=== PATIENT | male | born 1955 | race Hispanic/Latino ===

== ENCOUNTER 2017-05-25 10:25 | Outpatient (CLI) | payer BC ==
[2017-05-25 16:32] LABS: #Eosinphils 0.2 thou/uL (0.0-0.7); #Lymphocytes 1.7 thou/uL (1.20-3.40); #Monocytes 0.5 thou/uL (0.11-0.59); #Neutrophils 3.6 thou/uL (1.40-6.50); %Basophils 0.7 % (0.0-1.0); %Lymphocytes 27.8 % (21.0-51.0); %Monocytes 8.5 % (0.0-10.0); Hematocrit 40.4 % (42.0-52.0); Red Blood Cell (RBC) Count 3.96 mill/uL (4.70-6.10)
== END 2017-05-25 10:26 | disposition home or self-care (01) ==
LOC: CANPRECLI → LABBT 10:25
PROVIDERS: ATTEND Orthopaedic Surgery Hand Surgery
DX: Z01.812 Encounter for preprocedural laboratory examination (principal); M65.342 Trigger finger, left ring finger; M65.332 Trigger finger, left middle finger
CPT/HCPCS: 85025

== ENCOUNTER 2017-10-10 14:40 | Outpatient (CLI) | payer BC ==
--- NOTE | 2017-10-10 15:57 | MRI ---
MRI RIGHT SHOULDER WITHOUT CONTRAST: HISTORY: M25.511. COMPARISON: MRI 2013. FINDINGS: BICEPS TENDON: No normal intraarticular biceps tendon is seen. There is likely tenodesis. GLENOID LABRUM: There is tearing throughout the superior labrum. There is extensive abnormal signal throughout the s uperior labrum. There is thickening anterior and posterior labrum and inferior labrum with chronic d egeneration. There is also a tear of the posterior labrum at 9:00. ROTATOR CUFF: Full-thickness full-width subscapularis tear with retraction to the glenohumeral joint. There was al so a full-thickness full-width supraspinatus tendon tear retracted to the medial 1/3 humeral head. S evere tendinosis of the supraspinatus tendon. There is also extensive interstitial tearing of the in fraspinatus tendon with fluid extending along the myotendinous junction. BONES: There is some lateral downsloping of the acromion. There is a type III acromion and subacromial spur . Large anterior and inferior subchondral cyst formation of the glenoid. MUSCLES: Greater than 50% atrophy of the subscapularis. There is also edema along the supraspinatus muscle wi thout significant atrophy. Myotendinous junction edema of the infraspinatus is present. There is mi ld fatty atrophy of the teres minor. IMPRESSION: 1. Chronic full-thickness full-width subscapularis tendon tear with tendon retraction of the glenohu meral joint and greater than 50% muscle atrophy. 2. Full-thickness full width supraspinatus tendon tear with tendons retracted to the medial 1/3 antoinette ral head. The torn fibers were markedly tendinotic, although have a wavy appearance and, therefore, may not be scarred down. 3. Extensive synovitis. 4. Moderate interstitial tearing of the infraspinatus tendon with edema tracking along the myotendin ous junction. 5. Type III acromion of subacromial spur narrowing the subacromial space. 6. Likely prior tenodesis. 7. Extensive tearing and degeneration of the labrum. 8. Large anterior inferior subchondral cyst of the glenoid. POS: [facility]
== END 2017-10-10 14:41 | disposition home or self-care (01) ==
LOC: SCSMRI 14:40
PROVIDERS: ATTEND Orthopaedic Surgery
DX: M25.511 Pain in right shoulder (principal); M75.101 Unspecified rotator cuff tear or rupture of right shoulder, not specified as traumatic; R60.0 Localized edema; M65.811 Other synovitis and tenosynovitis, right shoulder; M75.91 Shoulder lesion, unspecified, right shoulder

== ENCOUNTER 2017-10-27 09:48 | Outpatient (CLI) | payer BC ==
[2017-10-27 11:43] LABS: Hemoglobin 14.7 g/dL (14.0-18.0); Mean Corpuscular HGB CONC 34.4 g/dL (32.0-36.0); Mean Corpuscular Hemoglobin 34.2 pg (27.0-31.0); Mean Corpuscular Volume 99.3 fl (80.0-94.0); Mean Platelet Volume 6.4 fL (7.4-10.4); Platelet Count 255 thou/uL (130-400); RBC Distribution Width 11.5 % (11.5-14.5); Red Blood Cell (RBC) Count 4.29 mill/uL (4.70-6.10); White Blood Cell (WBC) Count 5.6 thou/uL (4.8-10.8)
[2017-10-27 11:59] LABS: Anion Gap 13 mmol/L (10-20); BUN (Urea Nitrogen) 13 mg/dL (8.4-25.7); Calc. Creatinine Clearance 0 mL/min (70-130); Calcium 9.3 mg/dL (7.8-10.44); Carbon Dioxide 24 mmol/L (22-29); Chloride 98 mmol/L (98-107); Estimated GFR-MDRD Greater than 90; Glucose 112 mg/dL (70-105); Potassium 4.2 mmol/L (3.5-5.1); Sodium 131 mmol/L (136-145)
--- NOTE | 2017-10-27 12:45 | RAD ---
TWO VIEWS OF THE CHEST: Date: 10-27-17 Comparison: 04-27-16 History: Pre-operative patient. FINDINGS: There is no pneumothorax, pleural fluid, focal consolidation or alveolar edema. Heart and mediastinal contours demonstrate stable prominence of the cardiac silhouette. There is multilevel lower thoracic spine and upper lumbar spine disc space narrowing and mild anterior osteophyte formation. No acute f indings. IMPRESSION: Stable two view examination of the chest - no acute findings. POS: [facility]
--- NOTE | 2017-11-09 22:48 | EKG ---
Test Reason : Blood Pressure : / mmHG Vent. Rate : 071 BPM Atrial Rate : 071 BPM P-R Int : 140 ms QRS Dur : 088 ms QT Int : 378 ms P-R-T Axes : 008 -18 013 degrees QTc Int : 410 ms Normal sinus rhythm Normal ECG When compared with ECG of 25-MAY-2017 15:32, No significant change was found Confirmed by Dhara GARZON ([id number]) on 11/09/2017 10:48:23 PM Referred By: ARON Confirmed By:Dhara GARZON
== END 2017-10-27 09:49 | disposition home or self-care (01) ==
LOC: LABBT 09:48
PROVIDERS: ATTEND Orthopaedic Surgery
DX: Z01.818 Encounter for other preprocedural examination (principal); M75.101 Unspecified rotator cuff tear or rupture of right shoulder, not specified as traumatic
CPT/HCPCS: 71046; 80048; 85027; 93005; 93010

== ENCOUNTER 2017-11-04 05:54 | Day surgery (SDC) | payer BC ==
[2017-10-27 10:11] VITALS: BMI 32.3
[2017-11-04] MEDS ORDERED: CEFAZOLIN/Water 2 GM/20 ML SYRINGE ONE (06:22)
[2017-11-04] MEDS ORDERED: Midazolam HCl 2 mg/2 ml Vial ONE (06:25)
[2017-11-04] MEDS ORDERED: Ropivacaine 0.2% HCl/PF 20 ML ONE (06:25)
[2017-11-04] MEDS ORDERED: Fentanyl 100 MCG/2 ML VIAL ONE ×3 (06:25→09:00)
[2017-11-04] MEDS ORDERED: Lidocaine 1% (PF) 30 ML VIAL ONE (06:25)
[2017-11-04] MEDS ORDERED: Zolpidem Tartrate 5 MG TAB PO PRN (07:03)
[2017-11-04] MEDS ORDERED: HYDROcodone/Acetaminophen 10/325 mg Tablet PO PRN ×2 (07:03)
[2017-11-04] MEDS ORDERED: Ropivacaine 0.2% 550 ML 550 ML NERVE BLCK SCH (07:03)
[2017-11-04] MEDS ORDERED: traMADol HCl 50 MG TAB PO PRN ×2 (07:03)
[2017-11-04] MEDS ORDERED: Promethazine HCl 25 MG/ML VIAL IM PRN (07:03)
[2017-11-04] MEDS ORDERED: Ondansetron HCl/PF 4 MG/2 ML Vial IVP PRN ×2 (07:03→09:18)
[2017-11-04] MEDS ORDERED: Ketorolac Tromethamine 30 MG/ML VIAL IVP PRN (07:03)
[2017-11-04] MEDS ORDERED: Non-Formulary Medication 1 EACH PO PRN (09:17)
[2017-11-04] MEDS ORDERED: Promethazine HCl 25 MG/ML VIAL IM/IV PRN (09:18)
[2017-11-04] MEDS ORDERED: HYDROcodone/Acetaminophen 5/325 mg Tablet ONE (09:41)
--- NOTE | 2017-11-04 10:19 | OP ---
PREOPERATIVE DIAGNOSIS: Massive rotator cuff tear, right. POSTOPERATIVE DIAGNOSIS: Massive rotator cuff tear, right. PROCEDURE PERFORMED: Open acromioplasty and rotator cuff repair. SURGEON: Edu Cannon M.D. ULTRASOUND SONOGRAPHER: Dr. Self. BLOOD LOSS: 100. SPECIMEN: None. DRAINS: None. COMPLICATIONS: None. DESCRIPTION OF PROCEDURE: The patient was placed in the beach chair position. A deltoid splitting a pproach was made. I performed an anterior and inferior acromioplasty. Achieved hemostasis. Removed bursal tissue and exposed the humeral head, which was completely uncovered. I was able to mobilize the rotator cuff and advanced it laterally freshened up the rotator cuff. I freshened up the bone to bleeding bone at the edge of the articular margin. I placed two Arthrex corkscrew suture anchors th rough the base of this bloody area and then attached the tendon down to the bleeding bone and then re inforced this with double row type repair. Irrigation performed. Deltoid was repaired back to bone using #1 Ethibond. Subcutaneous tissue was closed with 2-0 Vicryl, the skin was closed with ari.
== END 2017-11-04 10:15 | disposition home or self-care (01) ==
LOC: SDC 05:54
PROVIDERS: ATTEND Orthopaedic Surgery
PROC: 0LQ10ZZ Repair Right Shoulder Tendon, Open Approach (ICD-10-PCS; principal; 2017-11-04)
DX: M75.101 Unspecified rotator cuff tear or rupture of right shoulder, not specified as traumatic (principal); Z98.890 Other specified postprocedural states
CPT/HCPCS: 96374; A4306; C1713; J2001; J2250; J2795; J3010

== ENCOUNTER 2020-05-19 20:19 | Inpatient (IN) | payer BC, OTHER, SELFPAY ==
[~2020-05-19 20:19] MED LIST: Iopamidol 370 76% 100 ML VIAL ONE
[2020-05-19 22:00] LABS: #Eosinphils 0.1 thou/uL (0.0-0.7); #Lymphocytes 1.2 thou/uL (1.20-3.40); #Monocytes 0.9 thou/uL (0.11-0.59); #Neutrophils 7.6 thou/uL (1.40-6.50); %Basophils 0.3 % (0.0-1.0); %Eosinophils 0.6 % (0.0-10.0); %Lymphocytes 11.8 % (21.0-51.0); %Monocytes 9.6 % (0.0-10.0); %Neutrophils 77.8 % (42.0-75.0); Hemoglobin 14.3 g/dL (14.0-18.0); Mean Corpuscular HGB CONC 34.1 g/dL (32.0-36.0); Mean Corpuscular Hemoglobin 33.9 pg (27.0-31.0); Mean Corpuscular Volume 99.4 fL (78.0-98.0); Platelet Count 211 thou/uL (130-400); RBC Distribution Width 11.7 % (11.5-14.5); Red Blood Cell (RBC) Count 4.23 mill/uL (4.70-6.10); White Blood Cell (WBC) Count 9.7 thou/uL (4.8-10.8)
[2020-05-19 22:22] LABS: ALT (SGPT) 72 U/L (8-55); AST (SGOT) 26 U/L (5-34); Albumin 4.2 g/dL (3.4-4.8); Alkaline Phosphatase 99 U/L (40-110); Anion Gap 13 mmol/L (10-20); BUN (Urea Nitrogen) 7 mg/dL (8.4-25.7); Bilirubin, Total 1.3 mg/dL (0.2-1.2); Calc. Creatinine Clearance 0 mL/min (70-130); Carbon Dioxide 28 mmol/L (23-31); Chloride 93 mmol/L (98-107); Estimated GFR-MDRD Greater than 90; Globulin 3.5 g/dL (2.4-3.5); Glucose 113 mg/dL (80-115); Potassium 3.9 mmol/L (3.5-5.1); Protein, Total 7.7 g/dL (5.8-8.1); Sodium 130 mmol/L (136-145)
[2020-05-19] MEDS ORDERED: Morphine 4 MG/ML VIAL ONE (23:08)
[2020-05-19] MEDS ORDERED: Ketorolac Tromethamine 30 MG/ML VIAL ONE (23:08)
--- NOTE | 2020-05-19 23:18 | CT ---
CT OF THE SOFT TISSUES OF THE NECK WITH IV CONTRAST INDICATION: Right-sided facial soft tissue swelling COMPARISON: None FINDINGS: Aerodigestive tract: Clear. Parotids/Submandibular/Thyroid glands: Normal. Lymph nodes: No pathologically enlarged lymph nodes. Lung Apices: There is a calcified granuloma in the right upper lobe. Bones: There is scattered degenerative and osteoarthritic change present. Incidentals: There is soft tissue reticulation and edema involving the right aspect of the jaw, over lying the right mandible. There is thickening of the right aspect of the platysma with inflammatory reticulation of the subcutaneous fat of the right aspect of the neck. No drainable fluid collection i s evident. There is periapical lucency surrounding a right posterior mandibular molar with cortical breakthrough suspicious for periapical abscess. IMPRESSION: Right posterior mandibular molar periodontal abscess with associated right-sided facial cellulitis. N o overt drainable fluid collection is seen within the soft tissues of the neck.
[2020-05-19 23:38] LABS: Bilirubin Negative (Negative); Blood, Urine Negative (Negative); Clarity Clear (Clear); Glucose, Urine (Dipstick) Normal (Negative); Ketone, Urine Trace mg/dL (Negative); Leukocyte Negative Leu/uL (Negative); Nitrite Negative (Negative); Protein, Urine (Dipstick) Negative (Neg-Trace); Specific Gravity, Urine 1.019 (1.002-1.036); Urobilinogen Normal mg/dL (Less than 2)
[2020-05-19] MEDS ORDERED: Ampicillin/Sulbactam 3 GM in Sodium Chloride 0.9% 100 ML IVPB SCH (23:45)
[2020-05-19] MEDS ORDERED: Vancomycin 1 GM/200 ML BAG ONE (23:51)
--- NOTE | 2020-05-20 00:55 | PDOC.HHP ---
Hospitalist HPI - History of Present Illness Right sided dental pain and swelling History of Present Illness: 64-year-old gentleman with history of hypertension presented to the emergency department with a complaint of right-sided dental pain and swelling which has been present for about 2 days. Patient saw his dentist this morning prescribed him penicillin and Tylenol 3. Patient states that the pain and swelling rapidly progressed over the course of the day and therefore presented to the emergency department. CT soft tissue of the neck done in the ED reported right posterior mandibular molar periodontal abscess with associated right-sided facial cellulitis, no overt drainable fluid collection was seen. According to the ED physician, he lanced the periodontal abscess, with a small amount of pus followed by serosanguineous fluid coming out. He was complaining of difficulty swallowing which got better after the I&D. Patient has no leukocytosis and does not meet sepsis criteria. Maxillofacial surgeon Dr. Santamaria was contacted by the ED physician recommended IV antibiotics and hospitalization for him to consult in am. Hospitalist ROS - Review of Systems Other: Except as documented, all other systems reviewed and negative. - Medication Medications: Medication Instructions Recorded Confirmed Type Mv-Mins/Folic/Lycopene/Ginkgo [One 1 tablet PO DAILY 04/27/16 10/27/17 History Daily For Men 50+ Advanced] Sertraline HCl [Zoloft] 50 mg PO DAILY 04/27/16 10/27/17 History Ibuprofen 1 tab PO TID PRN 05/25/17 10/27/17 History Losartan Potassium [Cozaar] 50 mg PO DAILY 05/25/17 10/27/17 History Cyclobenzaprine [Flexeril] 10 mg PO HS 10/27/17 10/27/17 History Hospitalist History - Past Medical History Cardiac: reports: HTN Other Medical History: No known medical history. - Family History Family History: reports: diabetes mellitus (Mother) - Social History Smoking Status: Current every day smoker (1 to 2 cigarettes/day) Alcohol: reports: Heavy (Drinks alcohol daily) Drugs: reports: none - Exam General Appearance: NAD, awake alert Eye: PERRL, anicteric sclera, scleral icterus ENT: normocephalic atraumatic ENT - other findings: Right mandibular and maxilla swelling. Neck: supple, symmetric, no JVD Heart: RRR, no murmur, no gallops Respiratory: CTAB, no wheezes, no rales, no ronchi Gastrointestinal: soft, non-tender, non-distended, normal bowel sounds Extremities: no cyanosis, no edema Skin: normal turgor, no rashes Neurological: cranial nerve grossly intact, no weakness, no focal deficits Musculoskeletal: normal tone, normal strength Psychiatric: normal affect, normal behavior, A&O x 3 Hospitalist Results - Labs Result Diagrams: 05/19/20 21:33 05/19/20 21:33 Lab results: WBC 9.7 thou/uL (4.8-10.8) 05/19/20 21:33 Hgb 14.3 g/dL (14.0-18.0) 05/19/20 21:33 Hct 42.0 % (42.0-52.0) 05/19/20 21:33 MCV 99.4 fL (78.0-98.0) H 05/19/20 21:33 Plt Count 211 thou/uL (130-400) 05/19/20 21:33 Neutrophils % 77.8 % (42.0-75.0) H 05/19/20 21:33 Sodium 130 mmol/L (136-145) L 05/19/20 21:33 Potassium 3.9 mmol/L (3.5-5.1) 05/19/20 21:33 Chloride 93 mmol/L (98-107) L 05/19/20 21:33 Carbon Dioxide 28 mmol/L (23-31) 05/19/20 21:33 BUN 7 mg/dL (8.4-25.7) L 05/19/20 21:33 Creatinine 0.79 mg/dL (0.7-1.3) 05/19/20 21:33 Glucose 113 mg/dL (80-115) 05/19/20 21:33 Lactic Acid 1.3 mmol/L (0.5-2.2) 05/19/20 22:46 Calcium 10.0 mg/dL (7.8-10.44) 05/19/20 21:33 Total Bilirubin 1.3 mg/dL (0.2-1.2) H 05/19/20 21:33 AST 26 U/L (5-34) 05/19/20 21:33 ALT 72 U/L (8-55) H 05/19/20 21:33 Alkaline Phosphatase 99 U/L (40-110) 05/19/20 21:33 Serum Total Protein 7.7 g/dL (5.8-8.1) 05/19/20 21:33 Albumin 4.2 g/dL (3.4-4.8) 05/19/20 21:33 Urine Ketones Trace mg/dL (Negative) A 05/19/20 23:23 Urine Blood Negative (Negative) 05/19/20 23:23 Urine Nitrite Negative (Negative) 05/19/20 23:23 Ur Leukocyte Esterase Negative Broderick/uL (Negative) 05/19/20 23:23 Hospitalist H&P A/P - Problem (1) Facial cellulitis Code(s): L03.211 - CELLULITIS OF FACE Status: Acute (2) Periodontal abscess Code(s): K05.219 - AGGRESSIVE PERIODONTITIS, LOCALIZED, UNSPECIFIED SEVERITY Status: Acute (3) Hypertension Code(s): I10 - ESSENTIAL (PRIMARY) HYPERTENSION Status: Chronic - Plan Plan: Admit to the medical floor. Start IV Unasyn, clindamycin and vancomycin. IV morphine as needed for pain Follow blood cultures Consult to maxillofacial surgery. Keep n.p.o. for now. Labetalol as needed for BP spikes. Continue home antihypertensives. Smoking cessation advised. He is also been counseled to cut down on alcohol.
[2020-05-20] MEDS ORDERED: Morphine 2 MG/ML VIAL SLOW IVP PRN (00:59)
[2020-05-20] MEDS: Sodium Chloride 0.9% 1,000 ML IV SCH ×2 (01:40→14:01)
[2020-05-20 02:11] VITALS: BMI 35.8
[2020-05-20] MEDS ORDERED: Ondansetron PF 4 MG/2 ML Vial IVP PRN (02:15)
[2020-05-20] MEDS ORDERED: Ondansetron ODT 4 MG TAB SL PRN (02:15)
[2020-05-20] MEDS ORDERED: Vancomycin 1 GM in Premix Bag 1 BAG IVPB SCH (02:30)
[2020-05-20] MEDS ORDERED: Clindamycin/D5W 300 MG/50 ML BAG IVPB SCH ×2 (05:00→08:00)
[2020-05-20 05:53] LABS: #Lymphocytes 1.3 thou/uL (1.20-3.40); #Monocytes 0.7 thou/uL (0.11-0.59); #Neutrophils 6.7 thou/uL (1.40-6.50); %Basophils 0.4 % (0.0-1.0); %Eosinophils 0.5 % (0.0-10.0); %Lymphocytes 14.6 % (21.0-51.0); %Monocytes 8.3 % (0.0-10.0); %Neutrophils 76.2 % (42.0-75.0); Hemoglobin 12.7 g/dL (14.0-18.0); Mean Corpuscular HGB CONC 35.2 g/dL (32.0-36.0); Mean Corpuscular Hemoglobin 35.2 pg (27.0-31.0); Mean Platelet Volume 6.8 fL (7.4-10.4); Platelet Count 169 thou/uL (130-400); RBC Distribution Width 11.6 % (11.5-14.5); Red Blood Cell (RBC) Count 3.61 mill/uL (4.70-6.10); White Blood Cell (WBC) Count 8.8 thou/uL (4.8-10.8)
[2020-05-20 06:19] LABS: Anion Gap 10 mmol/L (10-20); BUN (Urea Nitrogen) 6 mg/dL (8.4-25.7); Calc. Creatinine Clearance 156 mL/min (70-130); Calcium 8.8 mg/dL (7.8-10.44); Carbon Dioxide 26 mmol/L (23-31); Chloride 98 mmol/L (98-107); Estimated GFR-MDRD Greater than 90; Glucose 123 mg/dL (80-115); Potassium 3.7 mmol/L (3.5-5.1); Sodium 130 mmol/L (136-145)
[2020-05-20] MEDS: Ampicillin/Sulbactam 1.5 GM in Sodium Chloride 0.9% 100 ML IVPB SCH ×3 (07:00→12:54)
[2020-05-20] MEDS: Acetaminophen 325 MG TAB PO PRN ×2 (08:56→21:34)
[2020-05-20] MEDS: Multivitamin W/ Minerals 1 TAB PO SCH (08:56)
[2020-05-20] MEDS: Enoxaparin Sodium 40 MG/0.4 ML SYRINGE SC SCH (08:56)
[2020-05-20] MEDS: Losartan 25 MG TAB PO SCH (08:56)
[2020-05-20 11:46] LABS: SARS-CoV-2 MS2 Positive; SARS-CoV-2 N Gene Negative; SARS-CoV-2 S Gene Negative; SARS-CoV-2 by NAA Not Detected (NotDetected); SARS-CoV-2 orf1ab Negative
--- NOTE | 2020-05-20 12:35 | PDOC.EVN ---
Event Note - Event Note Event Note: Patient seen and examined no new complaints. Patient seen by oral surgeon we will continue stop vancomycin and Unasyn and continue clindamycin. No surgical intervention. Continue IV fluids for now.
[2020-05-20] MEDS: Clindamycin/D5W 900 MG in Premix Bag 1 BAG IVPB SCH ×2 (14:01→21:34)
[2020-05-20] MEDS ORDERED: FLU VACC QS2020-21(6MOS UP)/PF 60 MCG/0.5 ML SYRINGE IM ONE (21:00)
[2020-05-21] MEDS: Sodium Chloride 0.9% 1,000 ML IV SCH ×2 (05:00→06:21)
[2020-05-21] MEDS: Clindamycin/D5W 900 MG in Premix Bag 1 BAG IVPB SCH (06:21)
[2020-05-21 07:25] VITALS: BP 164/95; TEMP 98.8
--- NOTE | 2020-05-21 08:12 | CON ---
DATE OF CONSULTATION: 05/21/2020 HISTORY OF PRESENT ILLNESS: This is a 64-year-old male with about 2-week history of right-sided tooth pain and discomfort, who reports an acute rapidly increasing swelling over the course of about 24 hours, starting on the , the worsening symptoms and uncontrolled pain let the patient to report to the emergency room, where a CT of the neck revealed odontogenic abscess likely common from tooth #30 in the mandible associated with right-sided facial cellulitis. The ER physician noticed intraoral edema and performed an intraoral I and D, which reported a small amount of purulent drainage. The patient reports he felt significant improvement in his discomfort and swallowing after this I and D was performed. The patient on admission had no leukocytosis and continues to be that way on hospital day #2. Oral Surgery was consulted for evaluation due to the odontogenic abscess. PAST MEDICAL HISTORY: Hypertension. MEDICATIONS: 1. Losartan. 2. Cyclobenzaprine. 3. Sertraline. 4. Multivitamin. SOCIAL HISTORY: Positive for smoking. Positive for alcohol daily. Negative for recreational drugs. REVIEW OF SYMPTOMS: The patient reports right-sided generalized jaw and face pain. No difficulty breathing. No difficulty swallowing. Otherwise, review of symptoms within normal limits. PHYSICAL EXAMINATION: There is generalized right buccal edema. No erythema. Submandibular space is supple to palpation. Trachea midline. Intraoral exam, maximum opening approximately 25 mm. The tongue has full range of motion. The floor of mouth is soft. There is edema of the lingual gingiva and mucosa along the right posterior mandible, but no floor of mouth edema. There is edema and induration and evidence of intraoral incision and drainage wound in the right mandibular vestibule. No purulence is noticed extending from the wound. Tooth #30 is mildly tender to palpation with a class 1 mobility. RADIOGRAPHIC FINDINGS: CT of the face reveals findings consistent with the clinical exam. Generalized right buccal edema with no definitive fluid collection seen. ASSESSMENT: A 64-year-old male with odontogenic abscess involving tooth #30, responding well to incision and drainage and IV antibiotics since admission. PLAN: The patient's white blood cell count is normal, showing clinical and subjective improvements with supportive therapy. No indication for taking the patient to the operating room in the hospital setting. The patient can be discharged to our clinic today for extraction of tooth #30 under local anesthesia. We can provide his prescription for antibiotics, pain medicine, and mouth rinse at the clinic. Upon discharge, the patient can report directly to our office or can call [phone] for instructions. Job ID: [id number]
[2020-05-21] MEDS ORDERED: Saccharomyces boulardii 250 MG CAP PO SCH (09:00)
[2020-05-21] MEDS: Losartan 25 MG TAB PO SCH (09:01)
[2020-05-21] MEDS: Enoxaparin Sodium 40 MG/0.4 ML SYRINGE SC SCH (09:01)
[2020-05-21] MEDS: Multivitamin W/ Minerals 1 TAB PO SCH (09:01)
--- NOTE | 2020-05-21 22:01 | DIS ---
DATE OF ADMISSION: 05/20/2020 DATE OF DISCHARGE: 05/21/2020 DISCHARGE DIAGNOSES: 1. Facial cellulitis. 2. Periodontal abscess. 3. Hypertension. HOSPITAL COURSE: The patient is a 64-year-old male, who initially presented to the hospital with complaints of right-sided dental pain and swelling. The patient had a CT soft-tissue, which indicated right posterior mandible molar periodontal abscess with associated right-sided facial cellulitis. No drainable fluid collection was noted. At this time, patient was seen by [facility]. No intervention was needed. His antibiotics were continued. Recommendations from the [facility] were to discharge the patient and sent him to his office for removal of his tooth. Dr. Santamaria will be providing the patient with antibiotics, pain medications, and oral rinse. The patient was discharged and he was given instructions to follow up with Dr. Santamaria. His home medications have been resumed. PHYSICAL EXAMINATION: VITAL SIGNS: On discharge; temperature 98.8, pulse rate 76, respiratory rate 16, O2 saturation 95, and blood pressure 158/90. GENERAL: He is awake, alert, and oriented x3. Does not appear in distress. CV: S1 and S2 present. No murmurs, rubs, or gallops. Again, he will be discharged home and follow up with Dr. Santamaria after he is discharged. Job ID: [id number]
== END 2020-05-21 11:48 | disposition home or self-care (01) | DRG 137 ==
LOC: ERS 20:19 → T4-B 05-20 00:27 → OBSVTOIN 05-20 04:44
PROVIDERS: ADMIT Internal Medicine; ATTEND Internal Medicine
PROC: 0W930ZZ Drainage of Oral Cavity and Throat, Open Approach (ICD-10-PCS; principal; 2020-05-20)
PROC: 3E02340 Introduction of Influenza Vaccine into Muscle, Percutaneous Approach (ICD-10-PCS; 2020-05-20)
DX: K05.219 Aggressive periodontitis, localized, unspecified severity (principal); L03.211 Cellulitis of face; I10 Essential (primary) hypertension; Z23 Encounter for immunization; Z20.828 Contact with and (suspected) exposure to other viral communicable diseases; F41.9 Anxiety disorder, unspecified; F32.9 Major depressive disorder, single episode, unspecified; Z96.652 Presence of left artificial knee joint; F17.210 Nicotine dependence, cigarettes, uncomplicated; Z90.49 Acquired absence of other specified parts of digestive tract
CPT/HCPCS: 36415; 70491; 80048; 80053; 81003; 83605; 83735; 85025; 87040; 87086; 87635; 96376; G0378; J0295; J1650; J1885; J2270; J3370; J3490; Q9967; U0003

== ENCOUNTER 2022-10-04 21:31 | Observation (INO) | payer BC, SELFPAY ==
[2022-10-04 22:45] LABS: #Basophils 0.1 thou/uL (0.0-0.2); #Eosinphils 0.2 thou/uL (0.0-0.7); #Lymphocytes 1.7 thou/uL (1.20-3.40); #Monocytes 0.6 thou/uL (0.11-0.59); #Neutrophils 4.7 thou/uL (1.40-6.50); %Basophils 0.9 % (0.0-1.0); %Eosinophils 2.7 % (0.0-10.0); %Neutrophils 64.5 % (42.0-75.0); Mean Corpuscular HGB CONC 34.7 g/dL (32.0-36.0); Mean Platelet Volume 6.7 fL (7.4-10.4); Platelet Count 216 10x3/uL (130-400); RBC Distribution Width 11.6 % (11.5-14.5); Red Blood Cell (RBC) Count 3.72 mill/uL (4.70-6.10); White Blood Cell (WBC) Count 7.2 10x3/uL (4.8-10.8)
[2022-10-04 23:07] LABS: ALT (SGPT) 30 U/L (8-55); AST (SGOT) 27 U/L (5-34); Albumin 4.2 g/dL (3.4-4.8); Alkaline Phosphatase 104 U/L (40-110); Anion Gap 14 mmol/L (10-20); BUN (Urea Nitrogen) 5 mg/dL (8.4-25.7); Bilirubin, Total 0.5 mg/dL (0.2-1.2); Calc. Creatinine Clearance 0 mL/min (70-130); Calcium 9.2 mg/dL (7.8-10.44); Carbon Dioxide 23 mmol/L (23-31); Chloride 97 mmol/L (98-107); Estimated GFR 103; Globulin 3.1 g/dL (2.4-3.5); Glucose 89 mg/dL (80-115); Lipase 27 U/L (8-78); Potassium 3.6 mmol/L (3.5-5.1); Protein, Total 7.3 g/dL (5.8-8.1); Sodium 130 mmol/L (136-145)
[2022-10-05] MEDS ORDERED: Aspirin Chewable 81 MG TAB ONE (00:18)
[2022-10-05] MEDS ORDERED: Morphine 4 MG/ML VIAL ONE (00:36)
[2022-10-05] MEDS ORDERED: Ondansetron PF 4 MG/2 ML Vial ONE (00:36)
[2022-10-05] MEDS ORDERED: Acetaminophen 325 MG TAB PO PRN (03:18)
[2022-10-05 03:22] LABS: Troponin I 0.013 ng/mL (< 0.028)
[2022-10-05 03:24] VITALS: BMI 35.4
[2022-10-05] MEDS ORDERED: Ketorolac Tromethamine 30 MG/ML VIAL IVP SCH (03:30)
[2022-10-05] MEDS ORDERED: Electrolyte Replacement Protocol 1 EACH FS SCH (03:30)
[2022-10-05] MEDS ORDERED: Thiamine HCl 200 MG/2 ML VIAL SLOW IVP SCH (04:00)
[2022-10-05] MEDS ORDERED: Ketorolac Tromethamine 30 MG/ML VIAL ONE (04:08)
[2022-10-05 05:22] LABS: SARS-CoV-2 NAA Rapid Test Not Detected (NotDetected)
[2022-10-05 06:16] LABS: #Eosinphils 0.2 thou/uL (0.0-0.7); #Lymphocytes 1.3 thou/uL (1.20-3.40); #Monocytes 0.4 thou/uL (0.11-0.59); #Neutrophils 2.9 thou/uL (1.40-6.50); %Basophils 0.9 % (0.0-1.0); %Eosinophils 4.2 % (0.0-10.0); %Lymphocytes 27.6 % (21.0-51.0); %Monocytes 8.5 % (0.0-10.0); %Neutrophils 58.7 % (42.0-75.0); Hemoglobin 12.5 g/dL (14.0-18.0); Mean Corpuscular Hemoglobin 34.5 pg (27.0-31.0); Mean Platelet Volume 6.6 fL (7.4-10.4); Platelet Count 196 10x3/uL (130-400); RBC Distribution Width 11.5 % (11.5-14.5); Red Blood Cell (RBC) Count 3.62 mill/uL (4.70-6.10); White Blood Cell (WBC) Count 4.9 10x3/uL (4.8-10.8)
[2022-10-05 06:41] LABS: Anion Gap 14 mmol/L (10-20); BUN (Urea Nitrogen) 5 mg/dL (8.4-25.7); Calc. Creatinine Clearance 161 mL/min (70-130); Calcium 8.7 mg/dL (7.8-10.44); Carbon Dioxide 23 mmol/L (23-31); Chloride 101 mmol/L (98-107); Estimated GFR 105; Glucose 85 mg/dL (80-115); Potassium 3.8 mmol/L (3.5-5.1); Sodium 134 mmol/L (136-145); Troponin I Less than 0.010 ng/mL (< 0.028)
[2022-10-05] MEDS ORDERED: Ondansetron PF 4 MG/2 ML Vial IVP PRN (08:46)
[2022-10-05] MEDS ORDERED: Ondansetron ODT 4 MG TAB PO PRN (08:47)
[2022-10-05 08:58] LABS: Hemoglobin A1c 5.1 % (4.0-6.0)
[2022-10-05 08:58] LABS: Cardiac Risk 2.5 (Less than 4.5); Cholesterol 140 mg/dl (< 200 Desired); HDL Cholesterol 57 mg/dL (>60 Neg Risk); LDL Cholesterol, Calculated 70 mg/dL; Magnesium 1.9 mg/dL (1.6-2.6); Phosphorus 3.2 mg/dL (2.3-4.7); Triglycerides 66 mg/dL (Less than 150)
[2022-10-05] MEDS ORDERED: Regadenoson 0.4 MG/5 ML SYRINGE ONE (08:59)
[2022-10-05] MEDS ORDERED: Losartan 25 MG TAB PO SCH (09:00)
[2022-10-05] MEDS ORDERED: Multivit, Therapeutic 1 TAB PO SCH (09:00)
[2022-10-05] MEDS ORDERED: Folic Acid 1 MG TAB PO SCH (09:00)
[2022-10-05] MEDS ORDERED: Iopamidol-370 76% 500 ML 1 ML ONE (09:12)
[2022-10-05] MEDS ORDERED: hydrALAZINE 20 MG/ML VIAL SLOW IVP PRN (14:10)
[2022-10-05 17:35] VITALS: BP 136/71; TEMP 97.7
[2022-10-08] MEDS ORDERED: FLU VACC QS2022-23(6MOS UP)/PF 60 MCG/0.5 ML SYRINGE IM ONE (09:00)
[2022-10-08] MEDS ORDERED: Thiamine 100 MG TAB PO SCH (09:00)
== END 2022-10-05 17:35 | disposition home or self-care (01) ==
LOC: ERS 21:31 → ERHOLD 10-05 02:35 → 2SW 10-05 08:22
PROVIDERS: ADMIT Family Medicine; ATTEND Family Medicine
DX: R07.89 Other chest pain (principal); E87.1 Hypo-osmolality and hyponatremia; I10 Essential (primary) hypertension; F41.9 Anxiety disorder, unspecified; K76.0 Fatty (change of) liver, not elsewhere classified; K57.30 Diverticulosis of large intestine without perforation or abscess without bleeding; F17.290 Nicotine dependence, other tobacco product, uncomplicated; I25.10 Atherosclerotic heart disease of native coronary artery without angina pectoris; Z20.822 Contact with and (suspected) exposure to COVID-19
CPT/HCPCS: 36415; 71045; 71275; 74174; 76705; 78452; 80048; 80053; 80061; 83036; 83690; 83735; 83880; 84100; 84443; 84484; 85025; 93005; 93017; 96372; 96374; 96375; A9500; G0378; J1650; J1885; J2270; J2405; J2785; J3411; Q9967; U0002